=== PATIENT | male | born 1985 | race Caucasian/White ===

== ENCOUNTER 2023-01-11 18:39 | Emergency (ER) | payer MEDICARE, OTHER ==
[~2023-01-11] VITALS: Ht 170.2 cm; Wt 81.6 kg
--- NOTE | 2023-01-11 18:43 | NUR ---
AMANDA ALS TO BED #1
[2023-01-11] MEDS ORDERED: NACL 0.9% 1,000 ML IV ONE (18:50)
--- NOTE | 2023-01-11 18:51 | NUR ---
Mother bedside. Per mother pt is not a diabetic.
[2023-01-11 19:00] VITALS: BP 105/68
[2023-01-11 19:21] LABS: BASOPHILS # (AUTO) 0.1 K/uL (0.00-0.22); BASOPHILS % (AUTO) 0.7 % (0.0-2.0); EOSINOPHILS # (AUTO) 0.8 K/uL (0-0.4); HEMATOCRIT 37.7 % (36-52); HEMOGLOBIN 12.5 g/dL (12.0-18.0); LYMPHOCYTES # (AUTO) 0.9 K/uL (2.0-11.5); LYMPHOCYTES % (AUTO) 12.2 % (20.5-51.1); MEAN CORPUSCULAR HEMOGLOBIN 31 pg (27-31); MEAN CORPUSCULAR HGB CONC 33 g/dL (33-37); MEAN CORPUSCULAR VOLUME 92.1 fL (80-94); MONOCYTES # (AUTO) 1.1 K/uL (0.8-1.0); MONOCYTES % (AUTO) 14.9 % (1.7-9.3); NEUTROPHILS # (AUTO) 4.6 K/uL (1.8-7.7); NEUTROPHILS % (AUTO) 61.2 % (42.2-75.2); PLATELET COUNT (AUTO) 273 K/uL (140-450); RED BLOOD CELL COUNT(AUTO) 4.09 MIL/uL (4.20-6.10); RED CELL DISTRIBUTION WIDTH 18.2 % (11.6-13.7); WHITE BLOOD COUNT (AUTO) 7.5 K/uL (4.8-10.8)
--- NOTE | 2023-01-11 19:41 | NUR ---
Urine collected and sent to lab
--- NOTE | 2023-01-11 19:42 | NUR ---
RT by bedside, placed patient on RA, O2 sat 95% at this time
[2023-01-11 19:43] LABS: PROTHROMBIN TIME 11.3 secs (10.8-13.4)
[2023-01-11 19:46] LABS: APPEARANCE,URINE CLEAR (CLEAR); BILIRUBIN,URINE NEGATIVE (NEGATIVE); BLOOD, URINE NEGATIVE (NEGATIVE); COLOR,URINE YELLOW (YELLOW); LEUKOCYTE ESTERASE ,URINE NEGATIVE (NEGATIVE); NITRITE, URINE NEGATIVE (NEGATIVE); UGLUCOSE NEGATIVE (NEGATIVE)
[2023-01-11 19:48] LABS: ALBUMIN 3.3 g/dL (3.4-5.0); ANION GAP 8.9 (8-16); CARBON DIOXIDE 29.4 mmol/L (21-32); CREATININE 0.5 mg/dL (0.6-1.3); POTASSIUM 4.3 mmol/L (3.5-5.1); TOTAL BILIRUBIN 0.8 mg/dL (0.0-1.0)
--- NOTE | 2023-01-11 20:15 | NUR ---
shanika lopez stopped iv nacl 01/11/2023 at 2015 1hr iv time
--- NOTE | 2023-01-11 22:53 | NUR ---
Pt resting comfortably at this time. No s/s distress. no s/s pain
--- NOTE | 2023-01-11 23:09 | NUR ---
Patient discharged with v/s stable. Written and verbal after care instructions given and explained. Parent verbalized understanding. Ambulance Transport accompanied by parent. All questions addressed prior to discharge. Advised to follow up with PMD.
[2023-01-11 23:10] VITALS: BP 103/67
== END 2023-01-11 23:10 | disposition home or self-care (01) ==
LOC: MED 18:39
DX: R09.81 Nasal congestion (principal); Z20.822 Contact with and (suspected) exposure to COVID-19; R00.2 Palpitations
CPT/HCPCS: 36415; 36600; 71045; 80053; 81003; 82803; 83605; 83880; 84484; 85025; 85610; 85730; 87040; 87086; 87426; 87804; 93005; 96360; 99285; J7030; Q0092